=== PATIENT | female | born 1975 ===

== ENCOUNTER 2016-05-19 15:59 | Emergency (ER) | payer MEDICAID ==
[2016-05-19 17:27] VITALS: BMI 34.2
[2016-05-19] MEDS ORDERED: Lactated Ringer's 1,000 ML IV SCH ×2 (17:30→17:53)
[2016-05-19] MEDS ORDERED: Magnesium Sul 40GM/1L SW 1,000 ML IV ONE (17:47)
[2016-05-19] MEDS ORDERED: Betamethasone Soluspan 30 mg/5mL Inj Susp IM ONE (17:54)
--- NOTE | 2016-05-19 18:37 | OBHP ---
Datetime: 05/19/2016 17:31 IP Adm Impression: , intrauterine IP Admit Plan: Admit to unit Admit Comment, IP Provider: 40 yo IUP with Type 2 DM edc of 07/14 by lmp _ 14wk us presents at 32wk with c/o vaginal spotting of dark blood this morning noticed on 11AM and pelvic pressure inte rmittent x 2wk. She denies ctxs, coitus, pprom, decreased fm or outbreak of hsv. pt states she was diagnosed with hsv by blood work with this preg but that she has never has any outbreaks to the best of her knowledge. Pt states she did not take her glyburided this morning. PNC: with Dr Siddiqui PMH: HSV PSH: denies PGYNH: abnormal PAP POBH: Hx 32w labor/delivery: EAB x2 NKA medic: glyburide 5mg bid; pnv I: 32wks PTL AMA Type 2 DM P: MgSO4 4g load Betamethasone IV PT d/w _ Dr. Candelario. For transfer to [facility]. Indications for transfer and risks d/w pt. She agrees wi th plan. Informed conset obtained. Pelvic Type - PN: Adequate Extremities - PN: Normal Abdomen - PN: Normal Lungs - PN: Normal Heart - PN: Normal Thyroid - PN: Normal Neurologic - PN: Normal HEENT - PN: Normal General - PN: Normal Presentation-Admit: Vertex FHR - Baseline A Provider: 150 Membranes, Provider: Intact Contraction Comments Provider: q3-4 Comments, ACOG Physical Exam: FS Glucose 181 ob labs: Irma, HBSAgneg, rpr _ hiv neg, +[id number], VZI, Oneg. Bedside US VTX EGA AdmitDate IP: 32.0 IP Chief Complaint: Uterine contractions NICHD Variability Prov Fetus A: Moderate 6-25bpm NICHD Accel Fetus A IP Provider: 15X15 FHR Category Provider Fetus A: Category I NICHD Decel Fetus A IP Provider: None Dilatation, Provider: 0 Effacement, Provider: 0 Station, Provider: -4 Genitourinary Exam: Normal
[2016-05-19 18:40] LABS: BASO # 0.1 K/uL (0.0-0.2); BASO % 0.5 % (0.0-2.0); EOS # 0.1 K/uL (0.0-0.7); HEMATOCRIT 37.1 % (34.0-47.0); LYMPH # 3.7 K/uL (1.0-4.3); LYMPH % 26.5 % (20.0-40.0); MEAN CELL VOLUME 82.1 fl (81.0-99.0); MEAN CORPUSCULAR HEMOGLOBIN 26.7 pg (27.0-31.0); MEAN CORPUSCULAR HGB CONC 32.6 g/dL (33.0-37.0); MEAN PLATELET VOLUME 8.5 fl (7.2-11.7); MONO # 0.8 K/uL (0.0-0.8); MONO % 5.9 % (0.0-10.0); NEUT # 9.2 K/uL (1.8-7.0); NEUT % 66.1 % (50.0-75.0); RED CELL DISTRIBUTION WIDTH 14.5 % (11.5-14.5)
[2016-05-19 18:55] LABS: ALB/GLOB RATIO 0.9 (1.0-2.1); ALKALINE PHOSPHATASE 173 U/L (38-126); ALT/SGPT 28 U/L (9-52); AST/SGOT 24 U/L (14-36); BILIRUBIN,TOTAL 0.2 mg/dl (0.2-1.3); BLOOD UREA NITROGEN 8 mg/dl (7-17); CALCIUM 8.7 mg/dL (8.4-10.2); CARBON DIOXIDE 17 mmol/L (22-30); CHLORIDE 108 mmol/L (98-107); GFR AFRICAN-AMERICAN > 60; GLUCOSE,RANDOM 213 mg/dL (65-105); POTASSIUM 4.1 MMOL/L (3.6-5.0); SODIUM 137 mmol/l (132-148); TOTAL PROTEIN 6.4 G/DL (6.3-8.2)
[2016-05-19 19:14] LABS: RBC URINE < 1 /hpf (0-3); URINE BACTERIA RARE (<OCC); URINE BILIRUBIN NEGATIVE (NEGATIVE); URINE BLOOD NEGATIVE (NEGATIVE); URINE COLOR YELLOW (YELLOW); URINE GLUCOSE (UA) >=500 mg/dL (Normal); URINE KETONE TRACE mg/dL (NEGATIVE); URINE LEUKOCYTE ESTERASE NEG Leu/uL (Negative); URINE PROTEIN NEGATIVE (NEGATIVE); URINE UROBILINOGEN 0.2-1.0 mg/dL (0.2-1.0); WBC URINE < 1 /hpf (0-5)
== END 2016-05-19 23:00 | disposition short-term general hospital (02) ==
LOC: H.EROB2 15:59 → UNDOADMIN 17:36 → H.L&D 17:36 → H.EROB2 23:00
DX: O60.03 Preterm labor without delivery, third trimester (principal); Z3A.32 32 weeks gestation of pregnancy; O24.419 Gestational diabetes mellitus in pregnancy, unspecified control

== ENCOUNTER 2016-05-25 19:45 | Emergency (ER) | payer MEDICAID ==
[2016-05-25] MEDS: Lactated Ringer's 1,000 ML IV SCH (20:40)
[2016-05-25 20:43] VITALS: BMI 34.6
[2016-05-25] MEDS ORDERED: Insulin Regular 100 units/ml SC STA (20:44)
--- NOTE | 2016-05-25 20:49 | OBHP ---
Datetime: 05/25/2016 20:30 IP Adm Impression: , intrauterine ; No Active Labor; Intact Membranes IP Chief Complaint Other: vaginal discharge IP Admit Plan: Observation/Evaluation Admit Comment, IP Provider: 50-year-old 0-1 at 32 weeks and 6 days gestational age presents to the ED complaining of vaginal discharge. Patient reports mild cramping but states that she is feelin g no contractions. Patient denies any vaginal bleeding or leakage of fluids. Patient reports good fet al movement. Patient is a gestational diabetic on insulin. Patient admittedly reports that she is non compliant with her medication and diet regimen. Fingerstick here at OB ED is 235. records re viewed. Patient was treated at [facility] last week due to possible labor. At that admi ssion, patient received tocolytics and steroid course. Past medical history genital HSV, gestational diabetic Past surgical history none Medications vitamins, insulin regimen No known drug allergies Obstetrical history vaginal delivery at 32 weeks gestational age due to labor, elective te rmination of 2 Physical exam: Deferred physical exam findings Assessment: 32-year-old to 1 at 32 weeks 6 days gestational age with contractions, no evidence of labor at this time. Patient with elevated fingersticks, patient is noncompliant gestationa l diabetic. heart tracing reassuring at this time. Plan: Continue observation at OB ED IV fluid hydration Check CBC, CMP, UA, type and screen Due to elevated fingerstick, will administer insulin at this time Check ffn Discussed plan with patient AND questions answered. Pelvic Type - PN: Adequate Extremities - PN: Normal Abdomen - PN: Normal Back - PN: Normal Breast - PN: Normal Lungs - PN: Normal Heart - PN: Normal Thyroid - PN: Normal Neurologic - PN: Normal HEENT - PN: Normal General - PN: Normal FHR - Baseline A Provider: 150s Membranes, Provider: Intact Contraction Comments Provider: q4-5min Comments, ACOG Physical Exam: Cervix long, closed, posterior on sterile speculum exam. No fluid, no blood, no discharge noted. Pool Provider: Negative IP Hx Assessment: The History has been Reviewed and is Current Vital Signs Provider: Reviewed; Within Normal Limits NICHD Variability Prov Fetus A: Moderate 6-25bpm Dilatation, Provider: 0 Effacement, Provider: 0 Station, Provider: -4 Genitourinary Exam: Normal DTRs - PN: Normal
[2016-05-25 21:06] LABS: HEMATOCRIT 39.7 % (34.0-47.0); MEAN CELL VOLUME 81.6 fl (81.0-99.0); MEAN CORPUSCULAR HEMOGLOBIN 26.1 pg (27.0-31.0); RED CELL DISTRIBUTION WIDTH 14.7 % (11.5-14.5); WHITE BLOOD COUNT 14.5 K/uL (4.8-10.8)
[2016-05-25 21:14] LABS: RBC URINE 2 /hpf (0-3); URINE BILIRUBIN NEGATIVE (NEGATIVE); URINE BLOOD SMALL (NEGATIVE); URINE GLUCOSE (UA) >=500 mg/dL (Normal); URINE KETONE NEGATIVE (NEGATIVE); URINE LEUKOCYTE ESTERASE NEG Leu/uL (Negative); URINE PROTEIN NEGATIVE (NEGATIVE); URINE UROBILINOGEN 0.2-1.0 mg/dL (0.2-1.0); WBC URINE 5 /hpf (0-5)
[2016-05-25 21:15] LABS: URINE COLOR YELLOW (YELLOW)
[2016-05-25 21:17] LABS: ALB/GLOB RATIO 0.9 (1.0-2.1); ALKALINE PHOSPHATASE 168 U/L (38-126); ALT/SGPT 35 U/L (9-52); AST/SGOT 31 U/L (14-36); BILIRUBIN,TOTAL 0.2 mg/dl (0.2-1.3); BLOOD UREA NITROGEN 7 mg/dl (7-17); CALCIUM 9.4 mg/dL (8.4-10.2); CARBON DIOXIDE 19 mmol/L (22-30); CHLORIDE 105 mmol/L (98-107); GFR AFRICAN-AMERICAN > 60; GLUCOSE,RANDOM 247 mg/dL (65-105); SODIUM 136 mmol/l (132-148); TOTAL PROTEIN 6.7 G/DL (6.3-8.2)
[2016-05-25] MEDS ORDERED: Lactated Ringer's 1,000 ML IV SCH (22:30)
[2016-05-26] MEDS: Lactated Ringer's 1,000 ML IV SCH (06:15)
== END 2016-05-25 23:00 | disposition home or self-care (01) ==
LOC: H.EROB2 19:45
DX: O47.03 False labor before 37 completed weeks of gestation, third trimester (principal); Z3A.32 32 weeks gestation of pregnancy; O24.419 Gestational diabetes mellitus in pregnancy, unspecified control; O09.33 Supervision of pregnancy with insufficient antenatal care, third trimester

== ENCOUNTER 2016-06-01 11:24 | Inpatient (IN) | payer MEDICAID ==
[2016-06-01 11:41] VITALS: BMI 37.3
[2016-06-01] MEDS: Lactated Ringer's 1,000 ML IV SCH ×2 (12:09→23:44)
[2016-06-01 12:33] LABS: BASO # 0.1 K/uL (0.0-0.2); BASO % 0.4 % (0.0-2.0); EOS # 0.1 K/uL (0.0-0.7); EOS % 0.5 % (0.0-4.0); HEMATOCRIT 37.3 % (34.0-47.0); LYMPH # 2.8 K/uL (1.0-4.3); LYMPH % 16.1 % (20.0-40.0); MEAN CELL VOLUME 80.2 fl (81.0-99.0); MEAN CORPUSCULAR HEMOGLOBIN 27.2 pg (27.0-31.0); MEAN CORPUSCULAR HGB CONC 33.9 g/dL (33.0-37.0); MEAN PLATELET VOLUME 8.8 fl (7.2-11.7); MONO # 0.8 K/uL (0.0-0.8); MONO % 4.8 % (0.0-10.0); NEUT # 13.4 K/uL (1.8-7.0); NEUT % 78.2 % (50.0-75.0); RED CELL DISTRIBUTION WIDTH 14.6 % (11.5-14.5); WHITE BLOOD COUNT 17.1 K/uL (4.8-10.8)
[2016-06-01] MEDS ORDERED: Penicillin G Potassium 5 MU in Sodium Chloride 0.9% 50 ML IVPB ONE (14:06)
[2016-06-01] MEDS ORDERED: Penicillin G 5 Million Unit Vial IVPB ONE (14:10)
[2016-06-01] MEDS: Dextrose 5%/Lactated Ringer's 1,000 ML IV SCH ×2 (15:06→23:44)
[2016-06-01] MEDS ORDERED: Glucagon Recombinant 1 mg Inj IM PRN (15:07)
[2016-06-01] MEDS ORDERED: Dextrose 50% SYRINGE Inj (50 ml) IV PRN (15:07)
[2016-06-01] MEDS ORDERED: Insulin Regular 100 units/ml SC SCH ×2 (16:30)
--- NOTE | 2016-06-01 17:40 | OBADHP ---
Datetime: 06/01/2016 12:00 Admit Comment, IP Provider: 40 yr at 33w6d, AMA, GDM class A2 on insulin presents to [facility] wi th complaint of contractions q3-5 min and LOF which began at 8am. Patient denies vaginal bleeding. + movement. As per patient current course includes polyhydramnios US, admission at [facility] at 32wks GA for possible labor, was treated with steroid injections and tocolytics. Regan nt has no other concerns or complaints at this time. Pt obtains routine care with Dr. Radha alvarez and has an appointment this friday. course/care: steroids and tocolytics for possible at 32wks GA, AMA, GDM cla ss A2 on insulin, polyhydramnios on US, OBHx: 1 x at 32wks GA PMHx: HSV2 SurgHx: none SocialHx: denies Etoh, drugs , smoking Meds: PNV, insulin 40 NPH AM, reg insulin (20 units AM, 20 units PM, 20 units QHS) Allergies: NKDA PE: VSS Cardiac: S1 S2 normal, no murmurs/rubs/gallops Lungs: CTABL Abd: gravid, nontender Ext: no edema DTR's : 2+ throughout monitoring: FHR 130 bpm, moderate variability 6-25bpm, acceleration 15x15, no decels A:IUP at 33w6d with contractions q3min, suspected ROM P: -IV insertion, IVF -CBC, Type and screen - monitoring Tanvi Seymour M.D. PGY1 Addendum: 40-year-old at 33 weeks and 6 days gestational age presented to OB ED with PPROM. Patient is a gestational diabetic on insulin. Patient also with a history of 34 week delivery due to PPROM. P atient reports gush of fluid at home and leaking clear fluid since. Patient reports feeling mild cont ractions. Otherwise, patient without complaints. On exam, patient grossly ruptured with fluid in the vagina and fluid visualized coming from cervic al os. Bedside ultrasound confirmed cephalic presentation. heart tracing reassuring. Discussed plan with the patient's physician. 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 If no progression, we'll consider Pitocin augme ntation. I discussed plan with patient and all patient questions answered. records report possible history of genital herpes. Patient reports that she has never had a outbreak of genital herpes. No lesions seen on exam. Extremities - PN: Normal Abdomen - PN: Normal Back - PN: Normal Lungs - PN: Normal Heart - PN: Normal Neurologic - PN: Normal HEENT - PN: Normal General - PN: Normal FHR - Baseline A Provider: 130 Gestation - Est Wks by US: 33.6 IP Chief Complaint: Uterine contractions; Suspected ruptured membranes NICHD Variability Prov Fetus A: Moderate 6-25bpm NICHD Accel Fetus A IP Provider: 15X15 FHR Category Provider Fetus A: Category I NICHD Decel Fetus A IP Provider: None DTRs - PN: Normal EGA AdmitDate IP: 33.6 IP Adm Impression: , intrauterine IP Admit Plan: Observation/Evaluation Datetime: 05/25/2016 20:30 IP Chief Complaint Other: vaginal discharge Pelvic Type - PN: Adequate Breast - PN: Normal Thyroid - PN: Normal Membranes, Provider: Intact Contraction Comments Provider: q4-5min Comments, ACOG Physical Exam: Cervix long, closed, posterior on sterile speculum exam. No fluid, no blood, no discharge noted. Pool Provider: Negative IP Hx Assessment: The History has been Reviewed and is Current Vital Signs Provider: Reviewed; Within Normal Limits Dilatation, Provider: 0 Effacement, Provider: 0 Station, Provider: -4 Genitourinary Exam: Normal Datetime: 05/19/2016 17:31 Presentation-Admit: Vertex
[2016-06-01] MEDS ORDERED: Lidocaine 2% PF (10 ml) Amp ONE (20:23)
[2016-06-01] MEDS ORDERED: Oxytocin 30 units/LR 500ML 500 ML IV ONE ×2 (20:32→21:01)
[2016-06-01] MEDS ORDERED: ePHEDrine 50 mg/ml Inj ONE (20:40)
[2016-06-01] MEDS ORDERED: Esmolol 100 mg/10ml Inj IV ONE (20:58)
--- NOTE | 2016-06-01 22:20 | OBDS ---
DELIVERY PERSONNEL Delivery Doctor: Clair Escudero MD Scrub Nurse: Jose Roberto West OBT Employment Training Specialist: Violet RAHMAN/ Dorie RAHMAN Anesthesiologist: Bunny Chi MD Resident: N/Iftikhar MATERNAL INFORMATION Delivery Anesthesia: Epidural Medications in Delivery: Pitocin Estimated Blood Loss (ml): 800ml Placenta Cultured: Yes Maternal Complications: Premature Rupture of Membranes; Other Other Maternal Complications: Remote from delivery, no descent with adequate laboring, PPROM Provider Comments: delivery of live baby girl 9/9 clear fluid cord with 3 vessels tubes and ov jerardo wnl 1nuchal cord LABOR SUMMARY EDC: 07/14/2016 00:00 No. Babies in Womb: 1 Attempted: No Labor Anesthesia: Spinal LABOR INFORMATION Reason for Induction: Premature Rupture of Membranes Oxytocin: N/A Group B Beta Strep: Negative Steroids Given: Full Course; > 24 Hours before Delivery Reason Steroids Not Administered: Not Applicable MEMBRANES Membranes Rupture Method: Spontaneous Rupture of Membranes: 06/01/2016 08:00 Length of Rupture (hrs): 13.00 Amniotic Fluid Color: Clear Amniotic Fluid Amount: Moderate Amniotic Fluid Odor: Normal STAGES OF LABOR Stage 3 hrs: 0 Stage 3 min: 1 VAGINAL DELIVERY Episiotomy: None Laceration Extension: N/A Laceration Type: None Laceration Repair Note: none Sponge Count Correct: Yes Sharps Count Correct: Yes Count Comment: correct CSECTION DELIVERY Primary Indication: Other Other Primary Indication: Remote from delivery Secondary Indication: Other Other Secondary Indication: no descent with adequate laboring CSection Urgency: Elective CSection Incidence: Primary Labor: Labor Elective: Elective CSection Incision: Lower Uterine Transverse Uterine Closure: Double-layer closure BABY A INFORMATION Infant Delivery Date/Time: 06/01/2016 21:00 Method of Delivery: Born in Route : No : N/A Forceps: N/A Vacuum Extraction: N/A Shoulder Dystocia : No SHOULDER DYSTOCIA BABY A Infant Delivery Date/Time: 06/01/2016 21:00 PRESENTATION/POSITION BABY A Presentation: Compound Cephalic Presentation: Vertex Breech Presentation: N/A PLACENTA INFORMATION BABY A Placenta Delivery Time : 06/01/2016 21:01 Placenta Method of Delivery: Expressed Placenta Status: Delivered SCORES BABY A Heart Rate 1 min: >100 bpm INFANT INFORMATION BABY A Gestational Age at Delivery: 33.6 Gestational Status: Outcome : Liveborn Condition : Stable Infant Sex: Female IDENTIFICATION/MEDS BABY A ID Band Number: [id number] ID Band Location: Left Leg; Left Arm WEIGHT/LENGTH BABY A Infant Birthweight (gms): 3020 Infant Weight (lb): 6 Weight (oz): 10 CORD INFORMATION BABY A No. Cord Vessels: 3 Nuchal Cord : Around Neck x1, Loose Nuchal Cord Other: N/A True Knot: N/A Cord pH Baby Arterial: N/A Infant Cord pH Baby Venous: N/A Cord Blood Taken: Yes Banking/Donate Info: N/A Suction: Mouth; Nose
[2016-06-01 22:26] VITALS: BP 131/81; PULSE 97; RESP 18; TEMP 97.9; O2SAT 98
[2016-06-01] MEDS ORDERED: Oxycodone/Acetaminophen 5/325 mg Tab PO PRN (23:57)
[2016-06-02] MEDS: Oxycodone/Acetaminophen 5/325 mg Tab PO PRN ×4 (00:14→20:35)
[2016-06-02] MEDS ORDERED: Dextrose 50% SYRINGE Inj (50 ml) IV PRN (00:42)
[2016-06-02] MEDS ORDERED: Glucagon Recombinant 1 mg Inj IM PRN (00:42)
[2016-06-02] MEDS: Lactated Ringer's 1,000 ML IV SCH ×2 (05:29→10:00)
[2016-06-02] MEDS: Insulin Regular 100 units/ml SC SCH ×5 (07:41→22:18)
--- NOTE | 2016-06-02 08:32 | OP ---
PROCEDURE DATE: 06/01/2016 PREOPERATIVE DIAGNOSIS: ____ at 34 weeks, ____ premature rupture of membrane in labor, adv anced maternal age, and diabetes on insulin, and failure to descend or dilate. SURGEON: Yamil Escudero MD. OPERATOR SPECIALIST COMMUNICATIONS: Dr. Paul. ANESTHESIA: Dr. Chi; epidural anesthesia. PROCEDURE: Low transverse and this is primary low ____ section. FINDINGS: A live baby girl, Apgars 9 and 9, clear fluid, cord with 3 vessels. Placenta, tubes, and ovaries within normal limits. She had 1 nuchal cord. ESTIMATED BLOOD LOSS: About 800 mL. DESCRIPTION OF PROCEDURE: With the patient in the supine position and epidural anesthesia, the patie nt was prepped and draped in the usual sterile manner. Dr. Paul was present to help prepare the patient for surgery. After this was done, a Pfannenstiel incision was made and taken down to the [facility] jazlyn in layers. Dr. Paul assisting each step of the way. The fascia was opened, Dr. Paul doi ng his half, and I doing my half. The muscle was then from the fascia by sharp and blunt d issection, after which the peritoneum was grasped, incised vertically. Dr. Paul assisting each w ay. After this was done, the paracolic gutters were packed with wet laps, pushing the bowel away fro m the operative field. A bladder flap was established after which the low transverse incision was ma de in the uterus extending bilaterally and curving upwards. The baby was removed without any complic ation and given to automobile upholsterer who resuscitated. After this was done, the placenta was removed inta ct. The uterus was exteriorized and cleaned, and then the uterus was closed with 2-0 Vicryl in 2 lay ers, maintaining hemostasis. After this was done, the wet laps were removed from the paracolic gutte rs. The pelvic cavity was irrigated until clean. The uterus was then repositioned, Dr. Paul ass isting along with the surgery, and the peritoneum was grasped and closed with 1 Vicryl, muscles appro ximated with 1 Vicryl. The fascia was closed with 1 Vicryl running interlocking stitch starting at e ach end and finishing in the midline. Dr. Paul assisted doing his half, and I am doing my half. Following this, the subcutaneous layer was closed with 2-0 plain, and the skin was closed in a subcu ticular fashion with 3-0 Prolene. After this, Steri-Strips were applied. The patient tolerated the procedure well and was in satisfactory condition on the way to recovery [facility]. Dr. Paul was there for the last stitch from the beginning to the end. Yamil Escudero MD cc: 22 TT: 06/02/2016 08:32:19 jn
[2016-06-02 13:12] LABS: HEMATOCRIT 35.6 % (34.0-47.0); MEAN CELL VOLUME 81.5 fl (81.0-99.0); MEAN CORPUSCULAR HEMOGLOBIN 26.4 pg (27.0-31.0); MEAN CORPUSCULAR HGB CONC 32.3 g/dL (33.0-37.0); RED CELL DISTRIBUTION WIDTH 15.1 % (11.5-14.5); WHITE BLOOD COUNT 15.8 K/uL (4.8-10.8)
--- NOTE | 2016-06-02 14:21 | OBPPN ---
Datetime: 06/02/2016 14:16 PP Pain Prov: Within normal limits PP Pain Prov comment: no SOB, chest pains or leg pains PP Nausea Prov: Denies PP Flatus Prov: No PP Breasts Prov: Normal PP Lungs Prov: Normal PP Abdomen/Uterus Prov: Abnormal PP Lochia Prov: Normal PP Vulva/Perineum Prov: Normal PP CVA Tenderness Prov: Normal PP Extremities Prov: Normal PP Comments Phys Exam Prov: Abd soft ND Dressing intact Ext no calf tenderness PP Impression Prov: Normal progression PP Plan Prov: Continue present management PP Progress Note Prov: cbc this am reviewed and ok, continue PO care and OOB and ambulation Continue FBS and 2 hr PP checks Increase diet as toloerated IP PP Procedures: None Vital Signs Provider PP: Reviewed
[2016-06-03] MEDS: Oxycodone/Acetaminophen 5/325 mg Tab PO PRN ×4 (00:21→22:17)
[2016-06-03] MEDS: Insulin Regular 100 units/ml SC SCH ×4 (08:11→22:00)
--- NOTE | 2016-06-03 08:12 | OBPPN ---
Datetime: 06/03/2016 08:08 PP Pain Prov: Within normal limits PP Nausea Prov: Denies PP Flatus Prov: Yes PP BM Prov: No PP Breasts Prov: Normal PP Heart Prov: Normal PP Lungs Prov: Normal PP Abdomen/Uterus Prov: Normal PP Lochia Prov: Normal PP Vulva/Perineum Prov: Normal PP CVA Tenderness Prov: Normal PP Extremities Prov: Normal PP C/S Incision Prov: Normal PP Progress Prov: Not Applicable PP Impression Prov: Normal progression PP Plan Prov: Continue present management PP Progress Note Prov: stable pod2 incision clean and healing well IP PP Procedures: None Vital Signs Provider PP: Reviewed; Within Normal Limits
[2016-06-04] MEDS: Insulin Regular 100 units/ml SC SCH (06:30)
--- NOTE | 2016-06-04 08:34 | OBPPN ---
Datetime: 06/04/2016 08:30 PP Pain Prov: Within normal limits PP Nausea Prov: Denies PP Flatus Prov: Yes PP BM Prov: No PP Breasts Prov: Normal PP Heart Prov: Normal PP Lungs Prov: Normal PP Abdomen/Uterus Prov: Normal PP Lochia Prov: Normal PP Vulva/Perineum Prov: Normal PP CVA Tenderness Prov: Normal PP Extremities Prov: Normal PP C/S Incision Prov: Normal PP Progress Prov: Normal PP Impression Prov: Normal progression PP Plan Prov: Continue present management PP Progress Note Prov: stable pod3 continue present care dc home today IP PP Procedures: None Vital Signs Provider PP: Reviewed; Within Normal Limits
--- NOTE | 2016-06-04 08:39 | OBDCSUM ---
Datetime: 06/04/2016 08:34 Discharged to, Provider: Home Follow up at, Provider: Disch Instr Activity: Bedrest; May be up to bathroom; May be up for meals; May Shower Disch Instr Diet: Regular Discharge Instructions, Provider: Specific instructions as noted Discharge Diagnosis, Provider: Delivery Discharge Time: 06/04/2016 08:38 Follow up in weeks, Provider: 1week in office Disch Referrals: None Disch Activity Restrictions: No exercising; No lifting; No driving; Minimize walking; Minimize stair -climbing; No sexual activity; Nothing in vagina - [place], tampons, douche Discharge Comment, Provider: liv home today rto 1week call office if any problems Contraception after Delivery: Undecided
== END 2016-06-04 10:23 | disposition home or self-care (01) | DRG 651 ==
LOC: H.EROB2 11:24 → H.L&D 14:03 → H.OB/GYN 06-02 00:40
PROVIDERS: ADMIT Obstetrics & Gynecology; ATTEND Specialist
PROC: 10D00Z1 Extraction of Products of Conception, Low, Open Approach (ICD-10-PCS; principal; 2016-06-01)
PROC: 4A1HXCZ Monitoring of Products of Conception, Cardiac Rate, External Approach (ICD-10-PCS; 2016-06-01)
DX: O60.14X0 Preterm labor third trimester with preterm delivery third trimester, not applicable or unspecified (principal); O40.3XX0 Polyhydramnios, third trimester, not applicable or unspecified; O24.424 Gestational diabetes mellitus in childbirth, insulin controlled; Z3A.34 34 weeks gestation of pregnancy; O09.523 Supervision of elderly multigravida, third trimester; O42.013 Preterm premature rupture of membranes, onset of labor within 24 hours of rupture, third trimester; O69.81X0 Labor and delivery complicated by cord around neck, without compression, not applicable or unspecified; Z37.0 Single live birth; Z86.19 Personal history of other infectious and parasitic diseases